=== PATIENT | male | born 1980 | race American Indian/Alaskan Native ===

== ENCOUNTER 2019-04-14 07:37 | Emergency (ER) | payer BC ==
[2019-04-14 07:46] VITALS: BP 180/112; PULSE 80
[2019-04-14] MEDS ORDERED: Sodium Chloride 0.9% 10 ML Syringe FLUSH PRN (07:56)
[2019-04-14] MEDS ORDERED: Aspirin 81 MG Tab.Chew PO ONE (07:56)
[2019-04-14] MEDS ORDERED: FLU Vacc QS2019-20(6MOS+)/PF 60 MCG/0.5 ML SYRINGE IM ONE (08:15)
--- NOTE | 2019-04-14 08:23 | EDM.PDOC ---
ED HPI GENERAL MEDICAL PROBLEM - General Chief Complaint: Chest Pain Stated Complaint: HEART FLUTTERING Time Seen by Provider: 04/14/19 07:50 Source of Information: Reports: Patient History Limitations: Reports: No Limitations - History of Present Illness INITIAL COMMENTS - FREE TEXT/NARRATIVE: The patient presents with left sided chest pain and fluttering in his chest. This all started yesterday. He was shopping with his and noticed he had some muffled hearing and some congestion and took some eris seltzer. Last night he had some fluttering in his chest and some chest pain. This morning he had the chest pain again and some fluttering and some shortness of breath. He denies fever or chills. He had a little nausea but no vomiting. He has a history of hypertension and he is on losarten and HCTZ. His blood pressure is elevated today. He has no history of AL and he does not smoke. He has no diabetes. He also said the pressure went down his left arm. Onset: Gradual Duration: Day(s): (Last night) Location: Reports: Chest Quality: Reports: Pressure Severity: Mild Improves with: Reports: None Worsens with: Reports: None Associated Symptoms: Reports: Chest Pain, Shortness of Breath. Denies: Cough, Fever/Chills, Headaches, Nausea/Vomiting Left Chest Pain Score (Numeric/FACES): 7 - Related Data Allergies Allergy/AdvReac Type Severity Reaction Status Date / Time No Known Allergies Allergy Verified 04/14/19 07:46 Home Meds: Home Meds Hydrochlorothiazide 25 mg PO DAILY #30 tablet 05/11/16 [Rx] Methocarbamol 500 mg PO ASDIRECTED PRN 05/11/16 [History] Losartan [Cozaar] 50 mg PO DAILY 04/14/19 [History] Past Medical History - Past Health History Medical/Surgical History: Denies Medical/Surgical History Cardiovascular History: Reports: Hypertension Musculoskeletal History: Reports: Back Pain, Chronic Social & Family History - Tobacco Use Smoking Status *Q: Former Smoker Used Tobacco, but Quit: Yes Month/Year Tobacco Last Used: 2008 - Caffeine Use Caffeine Use: Reports: Coffee - Recreational Drug Use Recreational Drug Use: No ED ROS GENERAL - Review of Systems Review Of Systems: See Below Constitutional: Reports: No Symptoms HEENT: Reports: Other (Congestion) Respiratory: Reports: Shortness of Breath. Denies: Cough Cardiovascular: Reports: Chest Pain Endocrine: Reports: No Symptoms GI/Abdominal: Reports: Abdominal Pain, Nausea. Denies: Vomiting : Reports: No Symptoms Musculoskeletal: Reports: No Symptoms ED EXAM, GENERAL - Physical Exam Exam: See Below Exam Limited By: No Limitations General Appearance: Alert, No Apparent Distress Ears: Normal External Exam Nose: Normal Inspection Head: Atraumatic, Normocephalic Neck: Normal Inspection Respiratory/Chest: No Respiratory Distress, Lungs Clear, Normal Breath Sounds Cardiovascular: Regular Rate, Rhythm, No Edema, No Murmur GI/Abdominal: Soft, Non-Tender, No Organomegaly, No Mass Back Exam: Normal Inspection Extremities: Normal Inspection Neurological: Alert, Oriented, No Motor/Sensory Deficits EKG INTERPRETATION EKG Date: 04/14/19 Time: 07:44 Rhythm: NSR Rate (Beats/Min): 86 [place]: LAD-Left [place] Deviation P-Wave: Present QRS: Normal ST-T: Normal QT: Normal EKG Interpretation Comments: Q waves in the inferior leads Course - Vital Signs Last Recorded V/S: Last Vital Signs Temp 97.1 F 04/14/19 07:43 Pulse 80 04/14/19 07:43 Resp 16 04/14/19 07:43 BP 180/112 H 04/14/19 07:43 Pulse Ox 95 04/14/19 07:43 - Orders/Labs/Meds Orders: Active Orders 24 hr Category Date Time Status Cardiac Monitoring [RC] . DIRECTED Care 04/14/19 07:56 Active EKG Documentation Completion [RC] STAT Care 04/14/19 07:57 Active Influenza Vaccine Charge [RC] .DISCHARGE Care 04/14/19 07:49 Active Peripheral IV Care [RC] . DIRECTED Care 04/14/19 07:57 Active CBC W/O DIFF,HEMOGRAM [HEME] MOTH@0700 Lab 04/17/19 07:00 Ordered CBC W/O DIFF,HEMOGRAM [HEME] MOTH@0700 Lab 04/21/19 07:00 Ordered CBC W/O DIFF,HEMOGRAM [HEME] MOTH@0700 Lab 04/24/19 07:00 Ordered CBC W/O DIFF,HEMOGRAM [HEME] MOTH@0700 Lab 04/28/19 07:00 Ordered CBC W/O DIFF,HEMOGRAM [HEME] MOTH@0700 Lab 05/01/19 07:00 Ordered CBC W/O DIFF,HEMOGRAM [HEME] MOTH@0700 Lab 05/05/19 07:00 Ordered Heparin Sodium/D5W [Heparin 25,000 Units in D5W 500 ML] Med 04/14/19 09:00 Active 25,000 units in 500 ml IV TITRATE Nitroglycerin/D5W [Nitroglycerin 25 MG/D5W 250 ML] Med 04/14/19 09:00 Active 25 mg in 250 ml IV TITRATE Sodium Chloride 0.9% [Saline Flush] Med 04/14/19 07:56 Active 10 ml FLUSH ASDIRECTED PRN Peripheral IV Insertion Adult [OM.PC] Stat Oth 04/14/19 07:56 Ordered Medication Orders Heparin Sodium/Dextrose (Heparin 25,000 Units In D5w 500 Ml) 25,000 units in 500 mls @ 21.41 mls/hr IV TITRATE [facility]; Protocol Nitroglycerin/Dextrose (Nitroglycerin 25 Mg/D5w 250 Ml) 25 mg in 250 mls @ 3 mls/hr IV TITRATE [facility]; Protocol Sodium Chloride (Saline Flush) 10 ml FLUSH ASDIRECTED PRN PRN Reason: Keep Vein Open Last Admin: 04/14/19 08:12 Dose: 10 ml Labs: Laboratory Tests 04/14/19 04/14/19 Range/Units 08:00 08:00 WBC 6.98 (4.23-9.07) K/mm3 RBC 4.93 (4.63-6.08) M/mm3 Hgb 15.4 (13.7-17.5) gm/dl Hct 45.8 (40.1-51.0) % MCV 92.9 H (79.0-92.2) fl MCH 31.2 (25.7-32.2) pg MCHC 33.6 (32.2-35.5) g/dl RDW Std Deviation 43.0 (35.1-43.9) fL Plt Count 197 (163-337) K/mm3 MPV 9.7 (9.4-12.3) fl Neut % (Auto) 62.8 (34.0-67.9) % Lymph % (Auto) 22.8 (21.8-53.1) % [place] % (Auto) 9.9 (5.3-12.2) % Eos % (Auto) 4.0 (0.8-7.0) Baso % (Auto) 0.1 (0.1-1.2) % Neut # (Auto) 4.38 (1.78-5.38) K/mm3 Lymph # (Auto) 1.59 (1.32-3.57) K/mm3 [place] # (Auto) 0.69 (0.30-0.82) K/mm3 Eos # (Auto) 0.28 (0.04-0.54) K/mm3 Baso # (Auto) 0.01 (0.01-0.08) K/mm3 Sodium 138 (136-145) mEq/L Potassium 3.4 L (3.5-5.1) mEq/L Chloride 100 (98-107) mEq/L Carbon Dioxide 28 (21-32) mEq/L Anion Gap 13.4 (5-15) BUN 8 (7-18) mg/dL Creatinine 0.8 (0.7-1.3) mg/dL Est Cr Clr Drug Dosing 142.71 mL/min Estimated GFR (MDRD) > 60 (>60) mL/min BUN/Creatinine Ratio 10.0 L (14-18) Glucose 168 H (74-106) mg/dL Calcium 8.2 L (8.5-10.1) mg/dL Total Bilirubin 0.4 (0.2-1.0) mg/dL AST 25 (15-37) U/L ALT 33 (16-63) U/L Alkaline Phosphatase 59 (46-116) U/L Troponin I 0.078 H* (0.00-0.056) ng/mL Total Protein 8.2 (6.4-8.2) g/dl Albumin 3.4 (3.4-5.0) g/dl Globulin 4.8 gm/dL Albumin/Globulin Ratio 0.7 L (1-2) Meds: Medications Generic Name Dose Route Start Last Admin Trade Name Freq PRN Reason Stop Dose Admin Heparin Sodium/Dextrose 25,000 units in 500 mls @ 21.41 mls/hr 04/14/19 09:00 Heparin 25,000 Units In D5w 500 Ml IV TITRATE [facility] Protocol 8 UNITS/KG/HR Nitroglycerin/Dextrose 25 mg in 250 mls @ 3 mls/hr 04/14/19 09:00 Nitroglycerin 25 Mg/D5w 250 Ml IV TITRATE [facility] Protocol Sodium Chloride 10 ml 04/14/19 07:56 04/14/19 08:12 Saline Flush FLUSH 10 ml ASDIRECTED PRN Administration Keep Vein Open Discontinued Medications Generic Name Dose Route Start Last Admin Trade Name Ramseyq PRN Reason Stop Dose Admin Aspirin 324 mg 04/14/19 07:56 04/14/19 08:12 Aspirin PO 04/14/19 07:57 324 mg ONETIME ONE Administration Heparin Sodium (Porcine) 5,000 units 04/14/19 08:46 Heparin Sodium IVPUSH 04/14/19 08:47 ONETIME ONE Heparin Sodium (Porcine) 5,000 units 04/14/19 08:47 Heparin Sodium IVPUSH 04/14/19 08:48 .BOLUS ONE Influenza Virus Vaccine 60 mcg 04/14/19 08:15 Fluzone Quad [id number] Syringe IM 04/14/19 08:16 .ONCE ONE - Re-Assessments/Exams Free Text/Narrative Re-Assessment/Exam: 04/14/19 08:24 I ordered an IV saline lock, aspirin 324mg PO, labs, EKG, and a CXR. 04/14/19 08:51 His EKG shows a NSR with no acute changes and no changes from a prior EKG 3 years ago. His CXR looks good. His CBC looks good. His K was a little low at 3.4. His glucose is elevated at 168. His troponin is elevated at 0.078. His pain is better but he still has some pain with deep breath. I ordered a nitro drip, heparin bolus and heparin drip. I called [facility] and talked with the hospitalist Dr Bernal and she accepted the patient. He will be going by ground ambulance. Departure - Departure Time of Disposition: 08:55 Disposition: DC/Tfer to Acute Hospital 02 Reason for Transfer *Q: Other Condition: Serious Clinical Impression: Non-STEMI (non-ST elevated myocardial infarction) Referrals: Betty Castillo PA-C [Primary Care Provider] - Forms: ED Department Discharge - My Orders Last 24 Hours: My Active Orders 04/14/19 07:49 Influenza Vaccine Charge [RC] .DISCHARGE 04/14/19 07:56 Cardiac Monitoring [RC] . DIRECTED Sodium Chloride 0.9% [Saline Flush] 10 ml FLUSH ASDIRECTED PRN Peripheral IV Insertion Adult [OM.PC] Stat 04/14/19 07:57 EKG Documentation Completion [RC] STAT Peripheral IV Care [RC] . DIRECTED 04/14/19 09:00 Heparin Sodium/D5W [Heparin 25,000 Units in D5W 500 ML] 25,000 units in 500 ml IV TITRATE Nitroglycerin/D5W [Nitroglycerin 25 MG/D5W 250 ML] 25 mg in 250 ml IV TITRATE 04/17/19 07:00 CBC W/O DIFF,HEMOGRAM [HEME] MOTH@00 04/21/19 07:00 CBC W/O DIFF,HEMOGRAM [HEME] MOTH@69904/24/19 07:00 CBC W/O DIFF,HEMOGRAM [HEME] MOTH@69904/28/19 07:00 CBC W/O DIFF,HEMOGRAM [HEME] MOTH@69905/01/19 07:00 CBC W/O DIFF,HEMOGRAM [HEME] MOTH@69905/05/19 07:00 CBC W/O DIFF,HEMOGRAM [HEME] MOTH@699 - Assessment/Plan Last 24 Hours: My Active Orders 04/14/19 07:49 Influenza Vaccine Charge [RC] .DISCHARGE 04/14/19 07:56 Cardiac Monitoring [RC] . DIRECTED Sodium Chloride 0.9% [Saline Flush] 10 ml FLUSH ASDIRECTED PRN Peripheral IV Insertion Adult [OM.PC] Stat 04/14/19 07:57 EKG Documentation Completion [RC] STAT Peripheral IV Care [RC] . DIRECTED 04/14/19 09:00 Heparin Sodium/D5W [Heparin 25,000 Units in D5W 500 ML] 25,000 units in 500 ml IV TITRATE Nitroglycerin/D5W [Nitroglycerin 25 MG/D5W 250 ML] 25 mg in 250 ml IV TITRATE 04/17/19 07:00 CBC W/O DIFF,HEMOGRAM [HEME] MOTH@00 04/21/19 07:00 CBC W/O DIFF,HEMOGRAM [HEME] MOTH@00 04/24/19 07:00 CBC W/O DIFF,HEMOGRAM [HEME] MOTH@00 04/28/19 07:00 CBC W/O DIFF,HEMOGRAM [HEME] MOTH@69905/01/19 07:00 CBC W/O DIFF,HEMOGRAM [HEME] MOTH@0705/05/19 07:00 CBC W/O DIFF,HEMOGRAM [HEME] MOTH@07
[2019-04-14] MEDS ORDERED: Heparin Sodium 5,000 Units/ML Vial IVPUSH ONE ×2 (08:46→08:47)
--- NOTE | 2019-04-14 08:50 | CR ---
Chest: Two views of the chest were obtained. Comparison: Prior chest x-ray of 02/26/15. Heart size and mediastinum are within normal limits. Lungs are clear. Slight compression deformities are seen within the thoracic spine which are stable from prior exam. Minimal degenerative change is also noted within the spine. Impression: 1. Incidental findings. 2. Nothing acute is seen on two-view chest x-ray. Diagnostic code #2
[2019-04-14] MEDS ORDERED: Heparin Sodium/D5W 25,000 UNITS/500 ML BAG IV SCH (09:00)
[2019-04-14] MEDS ORDERED: Nitroglycerin/D5W 25 MG/250 ML BOTTLE IV SCH (09:00)
== END 2019-04-14 09:47 ==
LOC: JD.ED 07:37
DX: I21.4 Non-ST elevation (NSTEMI) myocardial infarction (principal); I10 Essential (primary) hypertension; Z79.899 Other long term (current) drug therapy; Z87.891 Personal history of nicotine dependence
CPT/HCPCS: 36415; 71046; 80053; 84484; 85025; 93005; 96365; 99285; A9270; J1644; J3490; 93010; 99284

== ENCOUNTER 2023-04-23 13:27 | Emergency (ER) | payer BC ==
[2023-04-23] MEDS ORDERED: Sodium Chloride 0.9% 10 ML Syringe FLUSH PRN (13:57)
[2023-04-23] MEDS ORDERED: NIFEdipine 10 MG Cap PO ONE (13:57)
[2023-04-23 14:02] LABS: BASOPHILS PERCENT AUTO 0.1 % (0.0-1.0); EOSINOPHILS ABSOLUTE AUTO 0.1 K/mm3 (0.0-0.4); EOSINOPHILS PERCENT AUTO 0.7 % (0.0-6.0); HEMATOCRIT 42.7 % (42.0-52.0); HEMOGLOBIN 14.8 gm/dl (14.0-18.0); IMMATURE GRAN ABSOLUTE AUTO 0.02 K/mm3 (0.00-0.05); IMMATURE GRAN PERCENT AUTO 0.3 % (0.0-0.4); LYMPHOCYTES ABSOLUTE AUTO 1.2 K/mm3 (1.0-4.8); LYMPHOCYTES PERCENT AUTO 17.2 % (24.0-44.0); MEAN CORPUSCULAR HEMOGLOBIN 33.1 pg (28.0-32.0); MEAN CORPUSCULAR HGB CONC 34.7 g/dl (32.0-36.0); MEAN CORPUSCULAR VOLUME 95.5 fl (83.0-99.0); MONOCYTES ABSOLUTE AUTO 0.5 K/mm3 (0.0-0.8); MONOCYTES PERCENT AUTO 7.3 % (0.0-8.0); NEUTROPHILS ABSOLUTE AUTO 5.1 K/mm3 (1.8-7.7); NEUTROPHILS PERCENT AUTO 74.4 % (41.0-71.0); PLATELET COUNT,PLT 194 K/mm3 (150-400); RED BLOOD CELL COUNT 4.47 M/mm3 (4.52-5.90); WHITE BLOOD CELL COUNT,WBC 6.85 K/mm3 (3.9-11.3)
[2023-04-23] MEDS ORDERED: Aspirin 81 MG Tab.Chew PO ONE (14:15)
[2023-04-23 14:27] LABS: A/G RATIO 0.7 (1-2); ALBUMIN 3.5 g/dl (3.4-5.0); ANION GAP 14.2 (5-15); BILIRUBIN TOTAL 0.4 mg/dL (0.2-1.0); BUN/CREATININE RATIO 9.1 (14-18); CALCIUM 8.7 mg/dL (8.5-10.1); CREATININE 1.1 mg/dL (0.7-1.3); EST CRCL DRUG DOSING (CG) 99.64 mL/min; MAGNESIUM 1.5 mg/dL (1.8-2.4); POTASSIUM,K 3.2 mEq/L (3.5-5.1); PROTEIN TOTAL,TP 8.4 g/dl (6.4-8.2)
[2023-04-23 18:52] VITALS: BP 135/88; PULSE 92
== END 2023-04-23 18:50 | disposition home or self-care (01) ==
LOC: JD.ED 13:27
DX: F41.9 Anxiety disorder, unspecified (principal); R00.0 Tachycardia, unspecified; I10 Essential (primary) hypertension; Z79.899 Other long term (current) drug therapy
CPT/HCPCS: 36415; 80053; 83735; 84484; 85025; 93005; 96374; 96376; 99285; A9270; J3360; J3490; 93010; 99284

== ENCOUNTER 2023-09-05 23:58 | Emergency (ER) | payer BC ==
[2023-09-06] MEDS: Morphine 4 MG/ML Syringe IVPUSH ONE ×3 (00:41→03:17)
[2023-09-06] MEDS: Ondansetron 4 MG/2 ML SDV IVPUSH ONE (00:41)
[2023-09-06] MEDS: Sodium Chloride 0.9% 1,000 ML IV ONE (00:41)
[2023-09-06] MEDS: Acetaminophen/HYDROcodone 325-5 MG Tab PO ONE (01:46)
[2023-09-06] MEDS: Morphine 4 MG/ML Syringe IM ONE (02:33)
[2023-09-06] MEDS: Sodium Chloride 0.9% 1,000 ML ONE (03:45)
[2023-09-06 05:20] VITALS: BP 121/70; PULSE 91
== END 2023-09-06 03:48 | disposition home or self-care (01) ==
LOC: JD.ED 23:58
DX: S82.241A Displaced spiral fracture of shaft of right tibia, initial encounter for closed fracture (principal); S82.54XA Nondisplaced fracture of medial malleolus of right tibia, initial encounter for closed fracture; I10 Essential (primary) hypertension; Z79.899 Other long term (current) drug therapy; W00.0XXA Fall on same level due to ice and snow, initial encounter
CPT/HCPCS: 29505; 73610; 96361; 96372; 96374; 96375; 96376; 99284; A9270; J2270; J2405; J7030; 99283

== ENCOUNTER → 2024-04-29 | Day surgery (SDC) | payer BC ==
[~2024-04-29] MED LIST: Propofol 200 MG/20 ML SDV ONE; Sodium Chloride 0.9% 10 ML Syringe FLUSH PRN; Sodium Chloride 0.9% 10 ML Syringe FLUSH SCH; fentaNYL 100 MCG/2 ML SDV ONE
[2024-04-29] MEDS: Lactated Ringers 1,000 ML IV SCH (08:35)
[2024-04-29 12:58] VITALS: BP 133/95; PULSE 82
== END | disposition home or self-care (01) ==
LOC: JD.SDS 08:13
PROVIDERS: ATTEND Surgery
DX: Z12.11 Encounter for screening for malignant neoplasm of colon (principal); I10 Essential (primary) hypertension; F41.9 Anxiety disorder, unspecified; G47.33 Obstructive sleep apnea (adult) (pediatric); Z79.899 Other long term (current) drug therapy; Z91.048 Other nonmedicinal substance allergy status; Z87.891 Personal history of nicotine dependence
CPT/HCPCS: 45378; J2704; J3010; J7120